=== PATIENT | female | born 1930 | race African-American/Black ===

== ENCOUNTER 2018-06-11 11:46 | Inpatient (IN) | payer MEDICARE, MEDICAID ==
[~2018-06-11] VITALS: Ht 162.6 cm; Wt 72.6 kg
[~2018-06-11 11:46] MED LIST: ALLO100T PO; ASPI-1159 PO; ATEN50TA PO; BRIM5DRO6 BOTHEYE; FURO40TA5; GLIP5TAB12 PO; HYDR-4134 PO; ISOS5TAB4 PO; LATA2.5D2 BOTHEYE; OLME40TA18 MT
[2018-06-11 15:22] LABS: HEMATOCRIT. 40.3 % (36.0-48.0); HEMOGLOBIN. 13.2 g/dL (12.0-16.0); MEAN CORPUSCULAR HEMOGLOBIN 30.1 pg (28.0-32.0); MEAN CORPUSCULAR VOLUME 91.9 fL (81.0-99.0); MEAN PLATELET VOLUME 9.1 fl (7.4-10.4); PLATELET 118 x1000/uL (130-400); RED BLOOD CELL COUNT 4.38 mill/uL (4.2-5.4); RED CELL DISTRIBUTION WIDTH 15.3 % (11.6-14.6)
[2018-06-11 15:24] LABS: CHLORIDE 109 mEq/L (98-107)
[2018-06-11 15:59] LABS: PLATELET ESTIMATE DECREASED
[2018-06-11] MEDS ORDERED: ASPIRIN 81MG TABLET PO ONE (16:15)
[2018-06-11] MEDS ORDERED: FUROSEMIDE 20MG/2ML VIAL IVP ONE (16:30)
[2018-06-11] MEDS ORDERED: ACETAMINOPHEN 325MG TABLET PO PRN (19:30)
[2018-06-11] MEDS ORDERED: LOSARTAN POTASSIUM 100 MG TABLET PO SCH (22:57)
[2018-06-11] MEDS ORDERED: HYDRALAZINE HCL 25MG TABLET PO NR (22:59)
[2018-06-11 23:56] LABS: CLARITY URINE CLEAR (CLEAR); COLOR URINE YELLOW (YELLOW); KETONES URINE NEGATIVE (NEGATIVE); LEUKOCYTE ESTERASE URINE NEGATIVE (NEGATIVE); NITRITE URINE NEGATIVE (NEGATIVE); OCCULT BLOOD URINE TRACE (NEGATIVE); PROTEIN URINE TRACE (NEGATIVE); SPECIFIC GRAVITY URINE 1.011 (1.005-1.030); UROBILINOGEN URINE 0.2 E.U./dL (0.2-1.0)
[2018-06-12] VITALS (7 sets, daily range): BP systolic 104–190; BP diastolic 56–95
[2018-06-12] MEDS ORDERED: ROSU20TA PO (01:09)
[2018-06-12] MEDS ORDERED: FURO20TA4 PO (01:09)
[2018-06-12] MEDS ORDERED: CHOL100044 GT (01:09)
[2018-06-12] MEDS ORDERED: CELE100C PO (01:09)
[2018-06-12] MEDS ORDERED: PANT40TA4 PO (01:09)
[2018-06-12] MEDS ORDERED: TRAM50TA3 PO (01:09)
[2018-06-12] MEDS ORDERED: FAMO20TA8 PO (01:09)
[2018-06-12] MEDS: POTASSIUM CHLORIDE INJ 20 MEQ in SODIUM CHLORIDE 0.45% 1,000 ML IV SCH (04:47)
[2018-06-12] MEDS ORDERED: CLONIDINE 0.1MG TABLET PO PRN (05:45)
[2018-06-12] MEDS ORDERED: DEXTROSE 50% WATER 50ML SYRINGE IV PRN ×3 (05:45→06:30)
[2018-06-12] MEDS: BLOOD SUGAR DIAGNOSTIC STRIP TEST SCH ×4 (06:40→21:31)
[2018-06-12] MEDS ORDERED: BLOOD SUGAR DIAGNOSTIC STRIP TEST SCH ×2 (07:20)
[2018-06-12] MEDS: LOSARTAN POTASSIUM 100 MG TABLET PO SCH (09:29)
[2018-06-12] MEDS: ASPIRIN 81MG TABLET PO SCH (09:29)
[2018-06-12] MEDS: ENOXAPARIN 30MG/0.3ML SYR SUBCUT SCH (09:29)
[2018-06-12] MEDS: FUROSEMIDE 40MG TABLET PO SCH (09:30)
[2018-06-12] MEDS: INSULIN LISPRO 100 UNITS/ML SUBCUT SCH ×4 (09:31→21:00)
[2018-06-12] MEDS: HYDRALAZINE HCL 25MG TABLET PO SCH ×2 (09:35→21:30)
[2018-06-12] MEDS: PANTOPRAZOLE 40MG DR TABLET PO SCH (09:35)
[2018-06-12] MEDS: IPRATROPIUM/ALBUTEROL 0.5-3(2.5)MG/3ML NEB HHN SCH (20:02)
[2018-06-13] VITALS (8 sets, daily range): BP systolic 102–135; BP diastolic 45–59
[2018-06-13] MEDS: IPRATROPIUM/ALBUTEROL 0.5-3(2.5)MG/3ML NEB HHN SCH ×4 (00:58→20:51)
[2018-06-13] MEDS: INSULIN LISPRO 100 UNITS/ML SUBCUT SCH ×4 (06:00→21:00)
[2018-06-13] MEDS: BLOOD SUGAR DIAGNOSTIC STRIP TEST SCH ×4 (06:42→20:59)
[2018-06-13] MEDS: PANTOPRAZOLE 40MG DR TABLET PO SCH (06:48)
[2018-06-13] MEDS: POTASSIUM CHLORIDE INJ 20 MEQ in SODIUM CHLORIDE 0.45% 1,000 ML IV SCH ×2 (06:48→18:00)
[2018-06-13] MEDS: FUROSEMIDE 40MG TABLET PO SCH (08:55)
[2018-06-13] MEDS: ASPIRIN 81MG TABLET PO SCH (08:55)
[2018-06-13] MEDS: HYDRALAZINE HCL 25MG TABLET PO SCH ×2 (08:55→21:00)
[2018-06-13] MEDS: LOSARTAN POTASSIUM 100 MG TABLET PO SCH (08:56)
[2018-06-13] MEDS: ENOXAPARIN 30MG/0.3ML SYR SUBCUT SCH (08:57)
[2018-06-13 10:57] LABS: BASOPHILS % 0.7 % (0.0-2.0); EOSINOPHILS % 2.6 % (0.0-5.0); HEMATOCRIT. 33.1 % (36.0-48.0); LYMPHOCYTES % 18.1 % (20.0-50.0); MEAN CORPUSCULAR HEMOGLOBIN 30.3 pg (28.0-32.0); MEAN CORPUSCULAR VOLUME 91.5 fL (81.0-99.0); MEAN PLATELET VOLUME 9.9 fl (7.4-10.4); MONOCYTES % 11.8 % (2.0-8.0); NEUTROPHILS % 66.8 % (40.0-76.0); PLATELET 89 x1000/uL (130-400); RED BLOOD CELL COUNT 3.62 mill/uL (4.2-5.4); RED CELL DISTRIBUTION WIDTH 15.1 % (11.6-14.6)
[2018-06-13 18:29] LABS: VITAMIN B12 SERUM 293 pg/mL (211-911)
[2018-06-14] VITALS: BP 119/44
[2018-06-14] MEDS: IPRATROPIUM/ALBUTEROL 0.5-3(2.5)MG/3ML NEB HHN SCH ×4 (01:22→19:57)
[2018-06-14] MEDS: POTASSIUM CHLORIDE INJ 20 MEQ in SODIUM CHLORIDE 0.45% 1,000 ML IV SCH (01:24)
[2018-06-14 04:00] VITALS: BP 108/44
[2018-06-14] MEDS: BLOOD SUGAR DIAGNOSTIC STRIP TEST SCH ×4 (06:55→21:25)
[2018-06-14] MEDS: INSULIN LISPRO 100 UNITS/ML SUBCUT SCH ×4 (06:56→21:00)
[2018-06-14 07:05] LABS: HEMATOCRIT 27.9 % (36.0-48.0); HEMOGLOBIN 9.3 g/dL (12.0-16.0); MEAN CORPUSCULAR HEMOGLOBIN 30.5 pg (28.0-32.0); MEAN CORPUSCULAR VOLUME 91.3 fL (81.0-99.0); PLATELET 71 x1000/uL (130-400); RED BLOOD CELL COUNT 3.06 mill/uL (4.2-5.4); RED CELL DISTRIBUTION WIDTH 14.6 % (11.6-14.6)
[2018-06-14 08:00] VITALS: BP 121/53
[2018-06-14] MEDS: LOSARTAN POTASSIUM 100 MG TABLET PO SCH (09:28)
[2018-06-14] MEDS: ASPIRIN 81MG TABLET PO SCH (09:28)
[2018-06-14] MEDS: HYDRALAZINE HCL 25MG TABLET PO SCH ×2 (09:28→21:22)
[2018-06-14] MEDS: FUROSEMIDE 40MG TABLET PO SCH (09:28)
[2018-06-14] MEDS: ENOXAPARIN 30MG/0.3ML SYR SUBCUT SCH (09:31)
[2018-06-14] MEDS: FAMOTIDINE 20MG TABLET PO SCH (09:31)
[2018-06-14 12:00] VITALS: BP 114/55
[2018-06-14 16:00] VITALS: BP 124/50
[2018-06-14 19:59] VITALS: BP 118/61
[2018-06-14 20:10] LABS: HEMATOCRIT 30.6 % (36.0-48.0); HEMOGLOBIN 10.1 g/dL (12.0-16.0); MEAN CORPUSCULAR HEMOGLOBIN 30.3 pg (28.0-32.0); MEAN CORPUSCULAR VOLUME 91.8 fL (81.0-99.0); PLATELET 87 x1000/uL (130-400); RED BLOOD CELL COUNT 3.34 mill/uL (4.2-5.4); RED CELL DISTRIBUTION WIDTH 14.9 % (11.6-14.6)
[2018-06-15] VITALS: BP 125/55
[2018-06-15 00:32] VITALS: BP 125/55
[2018-06-15] MEDS: IPRATROPIUM/ALBUTEROL 0.5-3(2.5)MG/3ML NEB HHN SCH ×3 (00:44→13:14)
[2018-06-15 04:00] VITALS: BP 120/55
[2018-06-15] MEDS: BLOOD SUGAR DIAGNOSTIC STRIP TEST SCH ×2 (06:25→12:12)
[2018-06-15] MEDS: INSULIN LISPRO 100 UNITS/ML SUBCUT SCH ×2 (06:30→12:12)
[2018-06-15 08:00] VITALS: BP 133/59
[2018-06-15] MEDS: ENOXAPARIN 30MG/0.3ML SYR SUBCUT SCH (09:00)
[2018-06-15] MEDS: HYDRALAZINE HCL 25MG TABLET PO SCH (09:56)
[2018-06-15] MEDS: ASPIRIN 81MG TABLET PO SCH (09:56)
[2018-06-15] MEDS: FUROSEMIDE 40MG TABLET PO SCH (09:56)
[2018-06-15] MEDS: FAMOTIDINE 20MG TABLET PO SCH (09:56)
[2018-06-15] MEDS: LOSARTAN POTASSIUM 100 MG TABLET PO SCH (09:56)
[2018-06-15 14:58] VITALS: BP 131/74
== END 2018-06-15 15:40 | disposition home or self-care (01) | DRG 65 ==
LOC: ER 13:05 → 6WST 19:20 → EDBEDREQ 19:30 → EDBEDREQTM 19:30 → ENRESERV 21:35
PROVIDERS: ADMIT Internal Medicine Pulmonary Disease; ATTEND Internal Medicine Pulmonary Disease
PROC: 4A00X4Z Measurement of Central Nervous Electrical Activity, External Approach (ICD-10-PCS; principal; 2018-06-13)
DX: I63.81 Other cerebral infarction due to occlusion or stenosis of small artery (principal); G93.40 Encephalopathy, unspecified; I13.0 Hypertensive heart and chronic kidney disease with heart failure and stage 1 through stage 4 chronic kidney disease, or unspecified chronic kidney disease; K56.699 Other intestinal obstruction unspecified as to partial versus complete obstruction; E86.0 Dehydration; D64.9 Anemia, unspecified; D69.6 Thrombocytopenia, unspecified; E11.22 Type 2 diabetes mellitus with diabetic chronic kidney disease; E11.51 Type 2 diabetes mellitus with diabetic peripheral angiopathy without gangrene; G47.30 Sleep apnea, unspecified; H40.9 Unspecified glaucoma; I25.10 Atherosclerotic heart disease of native coronary artery without angina pectoris; I50.9 Heart failure, unspecified; K42.9 Umbilical hernia without obstruction or gangrene; M10.9 Gout, unspecified; M19.90 Unspecified osteoarthritis, unspecified site; N18.2 Chronic kidney disease, stage 2 (mild); Z79.899 Other long term (current) drug therapy; Z85.038 Personal history of other malignant neoplasm of large intestine; Z90.710 Acquired absence of both cervix and uterus; Z87.891 Personal history of nicotine dependence; Z98.41 Cataract extraction status, right eye; Z88.0 Allergy status to penicillin; Z88.2 Allergy status to sulfonamides; Z79.82 Long term (current) use of aspirin
CPT/HCPCS: 36415; 70547; 70551; 71045; 74018; 74176; 80048; 82140; 82607; 82962; 83036; 83880; 84443; 84484; 85027; 93005; 93970; 94640; 96374; 97116; 97162; 97166; 99285; C1893; J1650; J1815; J1940; J3480; J7050; J7620

== ENCOUNTER 2018-11-13 10:00 | Inpatient (IN) | payer MEDICARE, OTHER ==
[~2018-11-13] VITALS: Ht 167.6 cm; Wt 70.3 kg
[2018-11-13] VITALS (8 sets, daily range): BP systolic 99–149; BP diastolic 44–80
[~2018-11-13 10:00] MED LIST changes: -ALLO100T PO; -ATEN50TA PO; -BRIM5DRO6 BOTHEYE; +FURO20TA4 PO; -FURO40TA5; -GLIP5TAB12 PO; -ISOS5TAB4 PO; -LATA2.5D2 BOTHEYE; +PANT40TA4 PO; +ROSU20TA PO; +TRAM50TA3 PO
[2018-11-13] MEDS ORDERED: DEXTROSE 50% WATER 50ML SYRINGE IV PRN (12:30)
[2018-11-13] MEDS ORDERED: ACETAMINOPHEN 325MG TABLET PO PRN (12:45)
[2018-11-13 14:24] LABS: PROTHROMBIN TIME 10.6 sec (9.6-11.0)
[2018-11-13 14:32] LABS: BASOPHILS % 1.3 % (0.0-2.0); EOSINOPHILS % 2.6 % (0.0-5.0); HEMATOCRIT. 34.3 % (36.0-48.0); HEMOGLOBIN. 11.3 g/dL (12.0-16.0); LYMPHOCYTES % 27.4 % (20.0-50.0); MEAN CORPUSCULAR VOLUME 90.9 fL (81.0-99.0); MEAN PLATELET VOLUME 9.5 fl (7.4-10.4); MONOCYTES % 10.1 % (2.0-8.0); NEUTROPHILS % 58.6 % (40.0-76.0); PLATELET 153 x1000/uL (130-400); RED BLOOD CELL COUNT 3.77 mill/uL (4.2-5.4); RED CELL DISTRIBUTION WIDTH 14.9 % (11.6-14.6)
[2018-11-13] MEDS: BLOOD SUGAR DIAGNOSTIC STRIP TEST SCH ×2 (17:17→21:17)
[2018-11-13] MEDS: INSULIN LISPRO 100 UNITS/ML SUBCUT SCH ×2 (17:17→21:00)
[2018-11-13] MEDS: SODIUM CHLORIDE 0.45% 1,000 ML IV SCH (18:47)
[2018-11-13] MEDS: LORAZEPAM 2MG/ML CPJ IV PRN (20:37)
[2018-11-13] MEDS ORDERED: CELECOXIB 100MG CAPSULE PO SCH (21:00)
[2018-11-13] MEDS: ATORVASTATIN CALCIUM 20MG TABLET PO SCH (21:17)
[2018-11-13] MEDS: ISOSORBIDE MONONITRATE 30MG TABLET SR 24HR PO SCH (21:18)
[2018-11-13] MEDS: CARVEDILOL 3.125 MG TABLET PO SCH (21:18)
[2018-11-13] MEDS: HYDRALAZINE HCL 50MG TABLET PO SCH (21:18)
[2018-11-13] MEDS: LOSARTAN POTASSIUM 25 MG TABLET PO SCH (21:19)
[2018-11-14] VITALS (12 sets, daily range): BP systolic 91–156; BP diastolic 35–68
[2018-11-14] MEDS: IPRATROPIUM/ALBUTEROL 0.5-3(2.5)MG/3ML NEB HHN SCH ×3 (01:00→21:10)
[2018-11-14 06:31] LABS: PHOSPHORUS 4.5 mg/dL (2.5-4.9)
[2018-11-14] MEDS: BLOOD SUGAR DIAGNOSTIC STRIP TEST SCH ×4 (07:03→21:00)
[2018-11-14 07:10] LABS: BG BASE EXCESS 1.3 mmol/L (-2.0-2.0); BG CARBOXYHEMOGLOBIN 0.6 % (0.5-1.5); BG DEOXYHEMOGLOBIN 1.6 % (0.0-5.0); BG FRACTION INSPIRED OXYGEN 28; BG HCO3 ACT 25.4 mmol/L (22.0-26.0); BG METHEMOGLOBIN 0.5 % (0.0-1.5); BG OXYGEN SATURATION 98.4 % (92.0-98.5); BG OXYHEMOGLOBIN 97.3 % (94.0-97.0); BG PCO2 38.1 mmHg (35.0-45.0); BG PH 7.441 (7.350-7.450); BG PO2 129.7 mmHg (75.0-100.0); BG SAMPLE SITE RIGHT RADIAL; BG TOTAL HEMOGLOBIN 11.8 g/dL (12.0-18.0); BG VENT MODE NASAL CANNULA
[2018-11-14] MEDS: INSULIN LISPRO 100 UNITS/ML SUBCUT SCH ×4 (07:20→21:00)
[2018-11-14] MEDS: ENOXAPARIN 60MG/0.6ML SYR SUBCUT SCH (09:32)
[2018-11-14] MEDS: CARVEDILOL 3.125 MG TABLET PO SCH ×2 (09:33→21:51)
[2018-11-14] MEDS: HYDRALAZINE HCL 50MG TABLET PO SCH ×2 (09:33→21:51)
[2018-11-14] MEDS: SODIUM CHLORIDE 0.45% 1,000 ML IV SCH ×2 (09:34→21:51)
[2018-11-14] MEDS: LOSARTAN POTASSIUM 25 MG TABLET PO SCH ×2 (09:34→21:51)
[2018-11-14] MEDS: FUROSEMIDE 40MG/4ML VIAL IVP SCH (09:38)
[2018-11-14] MEDS: POTASSIUM CHLORIDE 20MEQ TABLET SR PO SCH (09:38)
[2018-11-14 16:02] LABS: CLARITY URINE CLEAR (CLEAR); COLOR URINE YELLOW (YELLOW); KETONES URINE NEGATIVE (NEGATIVE); LEUKOCYTE ESTERASE URINE NEGATIVE (NEGATIVE); NITRITE URINE NEGATIVE (NEGATIVE); OCCULT BLOOD URINE NEGATIVE (NEGATIVE); PROTEIN URINE NEGATIVE (NEGATIVE); SPECIFIC GRAVITY URINE 1.007 (1.005-1.030); UROBILINOGEN URINE 0.2 E.U./dL (0.2-1.0)
[2018-11-14] MEDS ORDERED: RISPERIDONE 0.5MG TABLET PO PRN (18:45)
[2018-11-14] MEDS ORDERED: REGADENOSON 0.4 MG/5 ML IV NR (18:45)
[2018-11-14] MEDS: ATORVASTATIN CALCIUM 20MG TABLET PO SCH (21:51)
[2018-11-14] MEDS: ISOSORBIDE MONONITRATE 30MG TABLET SR 24HR PO SCH (21:52)
[2018-11-15] VITALS (11 sets, daily range): BP systolic 91–131; BP diastolic 28–55
[2018-11-15] MEDS: IPRATROPIUM/ALBUTEROL 0.5-3(2.5)MG/3ML NEB HHN SCH ×3 (01:29→21:14)
[2018-11-15 05:53] LABS: BASOPHILS % 1.5 % (0.0-2.0); EOSINOPHILS % 6.3 % (0.0-5.0); HEMATOCRIT. 32.3 % (36.0-48.0); HEMOGLOBIN. 10.6 g/dL (12.0-16.0); LYMPHOCYTES % 26.4 % (20.0-50.0); MEAN CORPUSCULAR HEMOGLOBIN 29.9 pg (28.0-32.0); MEAN PLATELET VOLUME 9.5 fl (7.4-10.4); MONOCYTES % 9.4 % (2.0-8.0); NEUTROPHILS % 56.4 % (40.0-76.0); PLATELET 153 x1000/uL (130-400); RED BLOOD CELL COUNT 3.55 mill/uL (4.2-5.4); RED CELL DISTRIBUTION WIDTH 14.9 % (11.6-14.6)
[2018-11-15] MEDS: BLOOD SUGAR DIAGNOSTIC STRIP TEST SCH ×4 (06:46→20:59)
[2018-11-15 06:57] LABS: PHOSPHORUS 3.9 mg/dL (2.5-4.9)
[2018-11-15] MEDS: INSULIN LISPRO 100 UNITS/ML SUBCUT SCH ×4 (07:20→21:00)
[2018-11-15 07:48] LABS: VITAMIN B12 SERUM 448 pg/mL (211-911)
[2018-11-15] MEDS: CARVEDILOL 3.125 MG TABLET PO SCH ×2 (08:27→21:16)
[2018-11-15] MEDS: HYDRALAZINE HCL 50MG TABLET PO SCH ×2 (08:27→21:16)
[2018-11-15] MEDS: FUROSEMIDE 40MG/4ML VIAL IVP SCH (08:28)
[2018-11-15] MEDS: LOSARTAN POTASSIUM 25 MG TABLET PO SCH ×2 (08:28→21:16)
[2018-11-15] MEDS: ENOXAPARIN 60MG/0.6ML SYR SUBCUT SCH (08:33)
[2018-11-15] MEDS: POTASSIUM CHLORIDE 20MEQ TABLET SR PO SCH (08:33)
[2018-11-15] MEDS ORDERED: REGADENOSON 0.4 MG/5 ML IV ONE (10:04)
[2018-11-15] MEDS: SODIUM CHLORIDE 0.45% 1,000 ML IV SCH (11:04)
[2018-11-15] MEDS ORDERED: ASPIRIN 81MG TABLET PO NR (16:30)
[2018-11-15] MEDS: ISOSORBIDE MONONITRATE 30MG TABLET SR 24HR PO SCH (21:17)
[2018-11-15] MEDS: ATORVASTATIN CALCIUM 20MG TABLET PO SCH (21:17)
[2018-11-16] VITALS (10 sets, daily range): BP systolic 110–151; BP diastolic 42–90
[2018-11-16] MEDS: IPRATROPIUM/ALBUTEROL 0.5-3(2.5)MG/3ML NEB HHN SCH ×3 (01:18→20:52)
[2018-11-16] MEDS: LORAZEPAM 2MG/ML CPJ IV PRN ×2 (03:22→20:50)
[2018-11-16] MEDS: BLOOD SUGAR DIAGNOSTIC STRIP TEST SCH ×4 (05:42→21:00)
[2018-11-16] MEDS: HYDRALAZINE HCL 50MG TABLET PO SCH ×2 (09:00→20:50)
[2018-11-16] MEDS: FUROSEMIDE 40MG/4ML VIAL IVP SCH (09:00)
[2018-11-16] MEDS: ENOXAPARIN 60MG/0.6ML SYR SUBCUT SCH (09:17)
[2018-11-16] MEDS: INSULIN LISPRO 100 UNITS/ML SUBCUT SCH ×4 (09:18→21:00)
[2018-11-16] MEDS: ASPIRIN 81MG TABLET PO SCH (09:19)
[2018-11-16] MEDS: LOSARTAN POTASSIUM 25 MG TABLET PO SCH ×2 (09:19→20:50)
[2018-11-16] MEDS: POTASSIUM CHLORIDE 20MEQ TABLET SR PO SCH (09:19)
[2018-11-16] MEDS: CARVEDILOL 3.125 MG TABLET PO SCH ×2 (09:21→20:51)
[2018-11-16] MEDS ORDERED: HALOPERIDOL 1MG TABLET PO PRN (10:15)
[2018-11-16] MEDS: FUROSEMIDE 40MG TABLET PO SCH (11:52)
[2018-11-16] MEDS: QUETIAPINE FUMARATE 25MG TABLET PO SCH (14:30)
[2018-11-16] MEDS ORDERED: TAMSULOSIN HCL 0.4MG SR CAPSULE PO SCH (14:45)
[2018-11-16] MEDS ORDERED: HALOPERIDOL LACTATE 5MG/ML VIAL IM PRN (16:45)
[2018-11-16] MEDS: ISOSORBIDE MONONITRATE 30MG TABLET SR 24HR PO SCH (20:51)
[2018-11-16] MEDS: ATORVASTATIN CALCIUM 20MG TABLET PO SCH (20:51)
[2018-11-17] VITALS (8 sets, daily range): BP systolic 100–135; BP diastolic 41–89
[2018-11-17] MEDS: IPRATROPIUM/ALBUTEROL 0.5-3(2.5)MG/3ML NEB HHN SCH ×4 (01:22→21:09)
[2018-11-17] MEDS: BLOOD SUGAR DIAGNOSTIC STRIP TEST SCH ×4 (07:31→21:57)
[2018-11-17] MEDS: INSULIN LISPRO 100 UNITS/ML SUBCUT SCH ×4 (07:50→21:00)
[2018-11-17] MEDS: QUETIAPINE FUMARATE 25MG TABLET PO SCH (09:00)
[2018-11-17] MEDS: HYDRALAZINE HCL 50MG TABLET PO SCH ×2 (09:00→21:00)
[2018-11-17] MEDS: POTASSIUM CHLORIDE 20MEQ TABLET SR PO SCH (09:00)
[2018-11-17] MEDS: CARVEDILOL 3.125 MG TABLET PO SCH ×2 (09:00→21:00)
[2018-11-17] MEDS: ENOXAPARIN 60MG/0.6ML SYR SUBCUT SCH (09:00)
[2018-11-17] MEDS: TAMSULOSIN HCL 0.4MG SR CAPSULE PO SCH (09:00)
[2018-11-17] MEDS: LOSARTAN POTASSIUM 25 MG TABLET PO SCH ×2 (09:00→21:00)
[2018-11-17] MEDS: FUROSEMIDE 40MG TABLET PO SCH (09:00)
[2018-11-17] MEDS: ASPIRIN 81MG TABLET PO SCH (14:16)
[2018-11-17] MEDS: ISOSORBIDE MONONITRATE 30MG TABLET SR 24HR PO SCH (21:00)
[2018-11-17] MEDS: ATORVASTATIN CALCIUM 20MG TABLET PO SCH (21:57)
[2018-11-18] MEDS: IPRATROPIUM/ALBUTEROL 0.5-3(2.5)MG/3ML NEB HHN SCH ×3 (02:32→11:33)
[2018-11-18 03:58] VITALS: BP 101/51
[2018-11-18] MEDS: BLOOD SUGAR DIAGNOSTIC STRIP TEST SCH ×2 (06:48→11:32)
[2018-11-18] MEDS: INSULIN LISPRO 100 UNITS/ML SUBCUT SCH ×2 (06:50→13:25)
[2018-11-18 08:00] VITALS: BP 114/54
[2018-11-18] MEDS: ENOXAPARIN 60MG/0.6ML SYR SUBCUT SCH ×2 (09:00→09:49)
[2018-11-18] MEDS: CARVEDILOL 3.125 MG TABLET PO SCH (09:00)
[2018-11-18] MEDS: POTASSIUM CHLORIDE 20MEQ TABLET SR PO SCH (09:46)
[2018-11-18] MEDS: TAMSULOSIN HCL 0.4MG SR CAPSULE PO SCH (09:47)
[2018-11-18] MEDS: QUETIAPINE FUMARATE 25MG TABLET PO SCH (09:47)
[2018-11-18] MEDS: FUROSEMIDE 40MG TABLET PO SCH (09:47)
[2018-11-18] MEDS: ASPIRIN 81MG TABLET PO SCH (09:47)
[2018-11-18] MEDS ORDERED: HYDRALAZINE HCL 50MG TABLET PO PRN (10:45)
[2018-11-18] MEDS ORDERED: HYDRALAZINE HCL 25MG TABLET PO PRN (11:15)
[2018-11-18 11:46] VITALS: BP 110/42
[2018-11-18 11:47] VITALS: BP 110/42
[2018-11-19] MEDS ORDERED: LOSARTAN POTASSIUM 25 MG TABLET PO SCH (09:00)
== END 2018-11-18 14:50 | DRG 280 ==
LOC: 3WST 10:00 → 6EST 11-16 10:40
PROVIDERS: ADMIT Internal Medicine Pulmonary Disease; ATTEND Internal Medicine Pulmonary Disease
PROC: 4A00X4Z Measurement of Central Nervous Electrical Activity, External Approach (ICD-10-PCS; principal; 2018-11-15)
DX: I50.33 Acute on chronic diastolic (congestive) heart failure (principal); I21.4 Non-ST elevation (NSTEMI) myocardial infarction; G93.41 Metabolic encephalopathy; N17.9 Acute kidney failure, unspecified; I13.0 Hypertensive heart and chronic kidney disease with heart failure and stage 1 through stage 4 chronic kidney disease, or unspecified chronic kidney disease; N18.2 Chronic kidney disease, stage 2 (mild); E11.22 Type 2 diabetes mellitus with diabetic chronic kidney disease; D64.9 Anemia, unspecified; E78.5 Hyperlipidemia, unspecified; F03.90 Unspecified dementia, unspecified severity, without behavioral disturbance, psychotic disturbance, mood disturbance, and anxiety; G47.33 Obstructive sleep apnea (adult) (pediatric); I25.10 Atherosclerotic heart disease of native coronary artery without angina pectoris; J45.909 Unspecified asthma, uncomplicated; K21.9 Gastro-esophageal reflux disease without esophagitis; M10.9 Gout, unspecified; M19.90 Unspecified osteoarthritis, unspecified site; N13.9 Obstructive and reflux uropathy, unspecified; N18.3 Chronic kidney disease, stage 3 (moderate); Z79.899 Other long term (current) drug therapy; Z83.3 Family history of diabetes mellitus; Z85.038 Personal history of other malignant neoplasm of large intestine; Z86.73 Personal history of transient ischemic attack (TIA), and cerebral infarction without residual deficits; Z87.891 Personal history of nicotine dependence; Z88.0 Allergy status to penicillin; Z90.49 Acquired absence of other specified parts of digestive tract; Z90.711 Acquired absence of uterus with remaining cervical stump; Z98.41 Cataract extraction status, right eye
CPT/HCPCS: 36415; 36600; 71045; 76770; 78452; 80048; 82140; 82375; 82607; 82805; 82962; 83735; 83880; 84100; 84443; 84484; 93017; 94640; 97162; 97166; A6261; A9500; C1893; J1630; J1650; J1815; J1940; J2060; J2785; J7620; A4315